=== PATIENT | female | born 1975 | race Caucasian/White ===

== ENCOUNTER → 2018-03-07 08:42 | Outpatient (CLI) | payer BC, SELFPAY ==
[2018-03-07 10:34] LABS: Erythrocyte Sedimentation Rate 5 mm/hr (0-20)
[2018-03-07 10:46] LABS: Absolute Lymphocyte Count 1.55 X10^3/ul (0.83-4.51); Absolute Neutrophil Count 2.7 X10^3/uL (2.0-7.7); Basophil# 0.03 X10^3/uL; Basophil% 0.6 % (0-1); Differential Indicated SCAN CRITERIA MET; Eosinophil# 0.22 X10^3/uL; Eosinophils% 4.4 % (0-5); Hematocrit 31.1 % (37-47); Hemoglobin 8.3 g/dl (12.0-15.0); Immature Platelet Fraction 1.7 % (1.0-7.9); Lymphocyte # 1.55 X10^3/ul (4.0); Lymphocyte % 31.1 % (19-41); Mean Corp Hgb Conc 26.7 g/gl (32-36); Mean Corpuscular Hgb 19.2 pg (27.0-32.0); Mean Corpuscular Volume 71.8 fL (81-99); Mean Platelet Vol. 9.5 fl (6.2-12.0); Monocyte# 0.51 X10^3/uL; Monocyte% 10.2 % (0-10); Neutrophil # 2.67 X10^3/uL (2.7-7.7); Neutrophil % 53.5 % (47-70); POSITIVE COUNT NO; POSITIVE DIFFERENTIAL NO; POSITIVE MORPHOLOGY YES; Platelet Count 355 K/mm3 (150-450); RBC Distribution Width SD 45.3 fl (35.1-43.9); RET-HE 15.9 pg (30-35); Red Blood Count 4.33 M/mm3 (4.2-5.4); Reticulocyte Count 0.87 % (0.5-1.5)
[2018-03-07 10:51] LABS: PTHIN 42.7 pg/mL (18.4-80.1)
[2018-03-07 10:52] LABS: Homocysteine 7.8 umol/L (3.2-10.7)
[2018-03-07 10:58] LABS: Vitamin B12 335 pg/mL (211-911)
[2018-03-07 11:07] LABS: Anisocytosis 2+; Hypochromasia 2+
[2018-03-07 11:08] LABS: Stomatocyte 1+
[2018-03-07 11:25] LABS: CRP < 2.90 mg/L (0.0-3.0); Ferritin 3 ng/mL (8-252); Iron 14 ug/dL (50-170); Iron Binding Capacity,Total 585 ug/dL (250-450); LDH 171 U/L (84-246); Magnesium 2.4 mg/dL (1.6-2.6); PERCENT IRON SATURATION 2.4 % (15.0-55.0); Phosphorus 4.4 mg/dL (2.5-4.9)
[2018-03-09 18:16] LABS: ANTINUCLEAR ANTIBODIES DIRECT Negative (Negative)
[2018-03-10 12:06] LABS: Haptoglobin 123 mg/dL (34-200)
[2018-03-11 09:47] LABS: Vitamin A, Retinol 43.7 ug/dL (20.1-62.0); Zinc, Plasma or Serum 63 ug/dL (56-134)
== END ==
PROVIDERS: Family Provider Internal Medicine; PCP Internal Medicine; Referring Provider Internal Medicine; Visit Provider Internal Medicine
DX: D64.9 Anemia, unspecified (principal); K91.2 Postsurgical malabsorption, not elsewhere classified; R53.83 Other fatigue
CPT/HCPCS: 36415; 82607; 82728; 82746; 83010; 83090; 83540; 83550; 83615; 83735; 83970; 84100; 84590; 84630; 85025; 85045; 85652; 86038; 86140

== ENCOUNTER → 2019-04-23 16:07 | Outpatient (CLI) | payer BC, SELFPAY ==
--- NOTE | 2019-04-23 16:10 | CT_ITS ---
STUDY: CTA CHEST REASON FOR EXAM: Female, 43 years old. POSITIVE D-DIMER, SOB RADIATION DOSAGE (If Supplied By Facility): CTDIvol = ( 8.59 ) mGy, DLP = ( 262.69 ) mGycm TECHNIQUE: The examination was performed with the intravenous administration of IV 100mL [id number]-370. Post-processing of the angiographic images was performed, with multiplanar reformation and 3D reconstruction. Individualized dose optimization techniques were used for this CT. COMPARISON: None. FINDINGS: Normal enhancement of the main pulmonary artery and right and left pulmonary arteries. Normal enhancement of the bilateral peripheral pulmonary arteries. There is no demonstrated pulmonary embolism. Normal thoracic aorta and visualized great vessels. There is no demonstrated aortic dissection. Normal heart and pericardium. Normal mediastinum. Normal hilar regions. Incidentally noted are likely upper tracheal diverticula Normal visualized trachea and bronchi. The lungs are well expanded. Normal pulmonary parenchyma. Normal pleura. There is 1.3 cm x 7 mm fatty partially calcified lesion within the right lobe of the liver. There is prior gastric bypass surgery. There is 7 mm right renal calculus. Normal chest wall structures. Normal osseous structures. Normal visualized upper abdomen. CT/CTA Chest W/WO Contrast IMPRESSION: Normal CTA chest examination, without a demonstrated pulmonary embolism or arterial dissection. 1.3 cm x 7 mm right hepatic lobe lipoma Prior gastric bypass surgery 7 mm right renal calculus Likely upper tracheal diverticula Electronically Signed: Joe Warren, at 17:16 EST Tel , Service support ,
== END ==
PROVIDERS: PCP Internal Medicine; Referring Provider Internal Medicine; Visit Provider Internal Medicine
DX: R79.89 Other specified abnormal findings of blood chemistry (principal)
CPT/HCPCS: 71275; Q9967

== ENCOUNTER → 2019-04-23 | Outpatient (CLI) | payer BC, SELFPAY | END | disposition home or self-care (01) | LOC: LABSPEC 12:04 → RAD 14:29 | PROVIDERS: PCP Internal Medicine; Referring Provider Internal Medicine; Visit Provider Internal Medicine | DX: R06.02 Shortness of breath (principal) | CPT/HCPCS: 85379 ==

== ENCOUNTER → 2019-04-24 12:49 | Outpatient (CLI) | payer BC, SELFPAY ==
[2019-04-24 13:10] VITALS: BP 123/86; PULSE 87; RESP 16; TEMP 36.9; O2SAT 98; BMI 30.3
== END ==
PROVIDERS: PCP Internal Medicine; Referring Provider Internal Medicine; Visit Provider Internal Medicine
DX: D50.9 Iron deficiency anemia, unspecified (principal)
CPT/HCPCS: 96365; J1756; J7050; A4216

== ENCOUNTER → 2019-04-30 09:55 | Outpatient (CLI) | payer BC, SELFPAY ==
[2019-04-24 13:10] VITALS: BMI 30.3
[2019-04-30 10:03] VITALS: BP 123/68; PULSE 68; RESP 18; TEMP 36.4; O2SAT 97; BMI 29.4
[2019-04-30 10:59] VITALS: BP 117/72; PULSE 66; RESP 16
== END ==
PROVIDERS: PCP Internal Medicine; Referring Provider Internal Medicine; Visit Provider Internal Medicine
DX: D50.9 Iron deficiency anemia, unspecified (principal)
CPT/HCPCS: 96365; J1756; J7050; A4216

== ENCOUNTER → 2019-05-02 12:56 | Outpatient (CLI) | payer BC, SELFPAY ==
[2019-04-24 13:10] VITALS: BMI 30.3
[2019-04-30 10:03] VITALS: BMI 29.4
[2019-05-02 13:00] VITALS: BP 126/74; PULSE 73; RESP 16; TEMP 36.6; O2SAT 100; BMI 29.4
== END ==
PROVIDERS: PCP Internal Medicine; Referring Provider Internal Medicine; Visit Provider Internal Medicine
DX: D50.9 Iron deficiency anemia, unspecified (principal)
CPT/HCPCS: 96365; J1756; J7050; A4216

== ENCOUNTER → 2019-05-05 12:51 | Outpatient (CLI) | payer BC, SELFPAY ==
[2019-04-24 13:10] VITALS: BMI 30.3
[2019-05-02 13:00] VITALS: BMI 29.4
[2019-05-05 13:15] VITALS: BP 120/71; PULSE 79; RESP 18; TEMP 36.8; O2SAT 100; BMI 29.4
== END ==
PROVIDERS: PCP Internal Medicine; Referring Provider Internal Medicine; Visit Provider Internal Medicine
DX: D50.9 Iron deficiency anemia, unspecified (principal)
CPT/HCPCS: 96365; J1756; J7050; A4216

== ENCOUNTER → 2019-05-07 12:55 | Outpatient (CLI) | payer BC, SELFPAY ==
[2019-04-24 13:10] VITALS: BMI 30.3
[2019-05-05 13:15] VITALS: BMI 29.4
[2019-05-07 13:49] VITALS: BP 105/63; PULSE 69; RESP 18; TEMP 36.4; O2SAT 99; BMI 29.4
== END ==
PROVIDERS: PCP Internal Medicine; Referring Provider Internal Medicine; Visit Provider Internal Medicine
DX: D50.9 Iron deficiency anemia, unspecified (principal)
CPT/HCPCS: 96365; J1756; J7050; A4216

== ENCOUNTER → 2019-05-12 12:58 | Outpatient (CLI) | payer BC, SELFPAY ==
[2019-04-24 13:10] VITALS: BMI 30.3
[2019-05-07 13:49] VITALS: BMI 29.4
[2019-05-12 13:21] VITALS: BP 120/79; PULSE 68; RESP 16; TEMP 36.4; O2SAT 100; BMI 29.4
== END ==
PROVIDERS: PCP Internal Medicine; Referring Provider Internal Medicine; Visit Provider Internal Medicine
DX: D50.9 Iron deficiency anemia, unspecified (principal)
CPT/HCPCS: 96365; J1756; J7050; A4216

== ENCOUNTER → 2019-05-14 12:58 | Outpatient (CLI) | payer BC, SELFPAY ==
[2019-04-24 13:10] VITALS: BMI 30.3
[2019-05-12 13:21] VITALS: BMI 29.4
[2019-05-14 13:04] VITALS: BP 121/71; PULSE 75; RESP 16; TEMP 36.4; O2SAT 100; BMI 29.4
[2019-05-14] MEDS: 0.9% NaCl Peripheral Flush Adult/Peds IV (13:18)
[2019-05-14] MEDS: 0.9% NaCl IVPB Med Flush (250 mL) 15 ML IV (13:18)
== END ==
PROVIDERS: PCP Internal Medicine; Referring Provider Internal Medicine; Visit Provider Internal Medicine
DX: D50.9 Iron deficiency anemia, unspecified (principal)
CPT/HCPCS: 96365; J1756; J7050; A4216

== ENCOUNTER → 2019-05-19 12:59 | Outpatient (CLI) | payer BC, SELFPAY ==
[2019-04-24 13:10] VITALS: BMI 30.3
[2019-05-14 13:04] VITALS: BMI 29.4
[2019-05-19] MEDS: 0.9% NaCl IVPB Med Flush (250 mL) 15 ML IV (13:22)
[2019-05-19] MEDS: 0.9% NaCl Peripheral Flush Adult/Peds IV (13:22)
[2019-05-19 13:28] VITALS: BP 116/75; PULSE 67; RESP 16; TEMP 37.1; O2SAT 100; BMI 29.4
[2019-05-19 14:07] VITALS: BP 122/74; PULSE 78; RESP 16; TEMP 36.8; O2SAT 98
== END ==
PROVIDERS: PCP Internal Medicine; Referring Provider Internal Medicine; Visit Provider Internal Medicine
DX: D50.9 Iron deficiency anemia, unspecified (principal)
CPT/HCPCS: 96365; J1756; J7050; A4216

== ENCOUNTER → 2019-11-19 14:52 | Outpatient (CLI) | payer BC, SELFPAY ==
[2019-05-19 13:28] VITALS: BMI 29.4
--- NOTE | 2019-11-19 15:10 | CT_ITS ---
STUDY: CT SOFT TISSUE NECK WITHOUT CONTRAST REASON FOR EXAM: Female, 43 years old. dyspnea RADIATION DOSAGE (If Supplied By Facility): CTDIvol = ( 17.05 ) mGy, DLP = ( 472.67 ) mGycm TECHNIQUE: The patient was scanned in a multi-detector CT scanner. High resolution transaxial imaging was performed without the administration of intravenous contrast material. Sagittal and coronal images were reconstructed. Individualized dose optimization techniques were used for this CT. COMPARISON: None. FINDINGS: The study is technically limited, being performed without intravenous contrast. Normal bilateral parotid glands. Normal bilateral home help aide spaces. Normal bilateral parapharyngeal spaces. Normal bilateral carotid spaces. Normal bilateral sublingual and submandibular glands and spaces. Normal visualized nasopharynx. Normal retropharyngeal space. Normal perivertebral space. Normal visualized bilateral faucial tonsils. The visualized tongue, tongue base and oropharynx are normal. The visualized cervical lymph nodes (levels I-) are within normal size limits, and maintain normal morphology. There is no demonstrated solid or cystic mass lesion. Normal epiglottis, bilateral vallecula and hypopharynx. The pre-epiglottic and paraglottic adipose spaces are normal. Normal visualized bilateral piriform sinuses, aryepiglottic folds, vocal cords, and arytenoid-cricoid articulations. Normal subglottic trachea. Normal bilateral lobes of the thyroid gland. Normal visualized pulmonary apices. Normal visualized paranasal sinuses. Normal visualized cervical spine. There is endplate spondylosis of the visualized upper thoracic spine. CT/Soft Tissue Neck without Contr IMPRESSION: Endplate spondylosis of the visualized upper thoracic spine. The study is otherwise unremarkable. Electronically Signed: Cesar Hdez MD at 16:19 EDT , Service support ,
== END ==
PROVIDERS: PCP Internal Medicine; Referring Provider Otolaryngology; Visit Provider Otolaryngology
DX: R06.09 Other forms of dyspnea (principal)
CPT/HCPCS: 70490

== ENCOUNTER → 2020-03-19 08:27 | Outpatient (CLI) | payer BC, SELFPAY ==
[2019-05-19 13:28] VITALS: BMI 29.4
--- NOTE | 2020-03-19 08:35 | RAD_ITS ---
STUDY: X-RAY - ESOPHAGUS (BARIUM SWALLOW) WITH FLUOROSCOPY REASON FOR EXAM: Female, 44 years old. DIFFICULTY SWALLOWING, CONSTANT FEELING OF SOMETHING STUCK IN THROAT, HX ESOPHAGEAL DILATATION AND GASTRIC SURGERY TECHNIQUE: 6 view(s) of the esophagus were obtained following swallowing of barium. FLUOROSCOPY TIME (if supplied): (0:33) minutes/seconds COMPARISON: None. FINDINGS: There is no demonstrated esophageal foreign body. There is no demonstrated stricture or mucosal abnormality. Normal gastroesophageal junction, without a demonstrated hiatal hernia. The patient ingested a 12 mm tablet of barium without difficulty. The patient is status post partial gastrectomy and Billroth II anastomosis. Normal visualized aortic arch and descending thoracic aorta. Normal visualized pulmonary parenchyma. Normal visualized osseous structures of the thorax. RAD/Esophagus Single Contrast IMPRESSION: Normal plain film x-ray examination (barium swallow) of the esophagus. Electronically Signed: Segundo Das MD at 9:42 EST , Service support ,
== END ==
PROVIDERS: PCP Internal Medicine
DX: K21.9 Gastro-esophageal reflux disease without esophagitis (principal); D50.9 Iron deficiency anemia, unspecified
CPT/HCPCS: 74220

== ENCOUNTER → 2022-12-25 | Outpatient (CLI) | payer BC, SELFPAY ==
[2022-12-25 16:10] LABS: Absolute Lymphocyte Count 1.44 X10^3/uL (0.83-4.51); Basophil# 0.05 X10^3/uL; Basophil% 0.9 % (0-1); Eosinophil# 0.12 X10^3/uL; Eosinophils% 2.2 % (0-5); Hematocrit 41.9 % (37-47); Hemoglobin 12.7 g/dL (12.0-15.0); Lymphocyte # 1.44 X10^3/ul (0.83-4.51); Lymphocyte % 26.6 % (19-41); Mean Corp Hgb Conc 30.3 g/dL (32-36); Mean Corpuscular Hgb 28.3 pg (27.0-32.0); Mean Corpuscular Volume 93.5 fL (81-99); Mean Platelet Vol. 10.6 fl (6.2-12.0); Monocyte# 0.76 X10^3/uL; NRBC Flagged by Analyzer 0 % (0-5); Neutrophil # 3.03 X10^3/uL (2.7-7.7); Neutrophil % 56.1 % (47-70); Platelet Count 354 K/mm3 (150-450); RBC Distribution Width CV 13.4 % (11.6-14.6); RBC Distribution Width SD 45.9 fl (35.1-43.9); Red Blood Count 4.48 M/mm3 (4.2-5.4); White Blood Count 5.4 K/mm3 (4.4-11.0)
[2022-12-25 17:00] LABS: AST(SGOT) 34 U/L (15-37); Alanine Aminotransfer ALT/SGPT 28 U/L (13-56); Albumin, Serum 3.6 g/dL (3.2-5.0); Alkaline Phosphatase 80 U/L (45-117); Anion Gap 4 (5-15); BUN 12 mg/dL (7-18); BUN/Creat Ratio 11.3 RATIO (10-20); Bilirubin, Direct 0.16 mg/dL (0.00-0.30); Calcium,Total 8.5 mg/dL (8.5-10.1); Chloride 105 mmol/L (98-107); Creatinine, Serum 1.06 mg/dL (0.55-1.02); EST Glomerular Filtration Rate 59 mL/min (>60); Est Glom Filt Rate - Afr Amer 71 mL/min (>60); Globulin 3.8 g/dL (2.2-4.2); Glucose 95 mg/dL (74-106); Potassium 4.2 mmol/L (3.5-5.1); Protein, Total 7.4 g/dL (6.4-8.2); Sodium Level 137 mmol/L (136-145); Thyroid Stim Hormone (TSH) 3.46 uIU/mL (0.358-3.74)
== END | disposition home or self-care (01) ==
LOC: MTLAB 12:55
PROVIDERS: PCP Internal Medicine; Referring Provider Student in an Organized Health Care Education/Training Program; Visit Provider Student in an Organized Health Care Education/Training Program
DX: F10.90 Alcohol use, unspecified, uncomplicated (principal); F43.22 Adjustment disorder with anxiety
CPT/HCPCS: 36415; 80048; 80076; 84443; 85025

== ENCOUNTER 2023-11-12 07:59 | Emergency (ER) | payer BC, SELFPAY ==
[2023-11-12 07:59] VITALS: BP 185/112; PULSE 95; RESP 16; TEMP 35.9; O2SAT 98; BMI 37.5
--- NOTE | 2023-11-12 08:13 | CT_ITS ---
STUDY: CT BRAIN WITHOUT CONTRAST REASON FOR EXAM: Female, 47 years old. Vertigo RADIATION DOSAGE (If Supplied By Facility): CTDIvol = ( 44.99 ) mGy, DLP = ( 796.11 ) mGycm TECHNIQUE: Transaxial CT imaging of the brain was performed without administration of intravenous contrast material. Individualized dose optimization techniques were used for this CT. COMPARISON: No relevant priors. FINDINGS: Normal soft tissue structures. Normal calvarium. Normal size ventricles and extra-axial spaces for the patient''s age. Normal white matter tracts of the cerebral hemispheres. Normal basal ganglia and thalami. Normal brainstem. Normal cerebellum. There is no intracranial hemorrhage. There are no findings of an acute ischemic infarction. Partial opacification of the right ethmoid sinus. CT/Brain/Head without Contrast IMPRESSION: Normal unenhanced CT scan of the brain. Partial opacification of the right ethmoid sinus. Electronically Signed: Segundo Das MD at 9:08 EDT ,
[2023-11-12 08:38] VITALS: BP 162/113; BP 164/125; BP 187/104; PULSE 118; PULSE 75; PULSE 76
[2023-11-12 08:41] LABS: Absolute Lymphocyte Count 2.39 X10^3/uL (0.83-4.51); Absolute Neutrophil Count 2.9 X10^3/uL (2.0-7.7); Basophil# 0.02 X10^3/uL; Basophil% 0.3 % (0-1); Eosinophil# 0.16 X10^3/uL; Eosinophils% 2.5 % (0-5); Hematocrit 42.9 % (37-47); Hemoglobin 13.2 g/dL (12.0-15.0); Lymphocyte # 2.39 X10^3/ul (0.83-4.51); Lymphocyte % 37.7 % (19-41); Mean Corp Hgb Conc 30.8 g/dL (32-36); Mean Corpuscular Hgb 25.5 pg (27.0-32.0); Mean Corpuscular Volume 82.8 fL (81-99); Mean Platelet Vol. 9.7 fl (6.2-12.0); Monocyte# 0.79 X10^3/uL; Monocyte% 12.5 % (0-10); NRBC Flagged by Analyzer 0 % (0-5); Neutrophil # 2.91 X10^3/uL (2.7-7.7); Neutrophil % 45.9 % (47-70); Platelet Count 267 K/mm3 (150-450); RBC Distribution Width CV 16.7 % (11.6-14.6); RBC Distribution Width SD 50.2 fl (35.1-43.9); Red Blood Count 5.18 M/mm3 (4.2-5.4); White Blood Count 6.3 K/mm3 (4.4-11.0)
[2023-11-12 08:53] LABS: Anion Gap 8 (5-15); BUN 18 mg/dL (7-18); Calcium,Total 8.3 mg/dL (8.5-10.1); Chloride 102 mmol/L (98-107); Creatinine, Serum 1.06 mg/dL (0.55-1.02); EST Glomerular Filtration Rate 58 mL/min (>60); Est Glom Filt Rate - Afr Amer 71 mL/min (>60); Estimated Creatinine Clearance 68.16 ml/min; Glucose 108 mg/dL (74-106); Potassium 3.5 mmol/L (3.5-5.1); Sodium Level 136 mmol/L (136-145)
--- NOTE | 2023-11-12 09:17 | EX.ED.DYSGE1 ---
HPI History of Present Illness Chief Complaint: Cold Sx Detail of Chief Complaint: Viral-like symptoms due to COVID and vertigo Informant: patient Onset/Context/Timing Onset: - (Onset of illness 8 days ago. Diagnosed with COVID 6 days ago) Context: Sudden Onset Timing: Continuous and Intermittent Quality: Patient has viral-like symptoms and vertigo. HPI for complete detail Location: Generalized Current Severity: Mild Maximum Severity: Moderate Worsened by: Vertigo worse with change in position Relieved by: Nothing Associated Symptoms Associated Symptoms: Nausea, myalgias, cough Narrative Narrative: Patient is a 47-year-old female. She has history of adjustment disorder with anxious mood and alcohol disorder. She had viral-like symptoms started 8 days ago. 6 days ago she was diagnosed with COVID-19 infection. Patient does endorse headache. She endorses vertigo. There is also a positional component meaning lightheadedness. She states when she closes her eyes she spins the opposite way. She denies ringing or ears or decreased hearing. She does endorse congestion as well as cough. She does endorse myalgias arthralgias. She denies rash. She has had nausea. She has had no vomiting or diarrhea. She denies history of hypertension, diabetes or hypercholesterolemia. Prior similar symptoms: No Recent Illness/Hospitalization: Yes PFSH PFSH Medical History Alcohol use disorder Adjustment disorder with anxious mood delivery delivered Vitamin deficiency Chronic GERD Irritable bowel syndrome History of emotional problems Alcohol abuse Home Medications ?Medication ?Instructions ?Recorded ?Last Taken ?Type multivitamin 1 ea PO 04/24/19 Unknown History omeprazole 40 mg capsule,delayed 40 mg PO DAILY 04/24/19 Unknown History release propranolol 10 mg tablet 10 mg PO TID PRN anxiety #90 tabs 08/21/23 Unknown Rx acamprosate 333 mg tablet,delayed 666 mg (2 x 333 mg) PO TID 30 days 10/17/23 Unknown Rx release #180 tabs escitalopram oxalate 10 mg tablet 10 mg PO DAILY 90 days #90 tabs 10/17/23 Unknown Rx benzonatate 200 mg capsule 200 mg PO TID PRN cough #20 caps 11/06/23 Unknown Rx dexamethasone 6 mg tablet 6 mg PO DAILY #5 tabs 11/06/23 Unknown Rx Allergy/AdvReac Type Severity Reaction Status Date / Time acetaminophen (From Vicodin) Allergy Hives Verified 11/12/23 08:02 cefpodoxime (From Vantin) Allergy Hives Verified 11/12/23 08:02 hydrocodone (From Vicodin) Allergy Hives Verified 11/12/23 08:02 Family History Other CVA (cerebral vascular accident) Hypertension Parkinson disease Surgical History H/O gastric bypass Social History Smoking Status: Never smoker alcohol intake: current details: 2-3x weekly substance use type: does not use what type of physical activity do you participate in: none ROS ROS ED Constitutional Constitutional ED: Reports chills, fever(s), subjective and sweats; Denies weight loss Eyes Eyes: Denies blurry vision, change in vision or diplopia ENT ENT ED: Reports other Details: She does endorse nasal congestion. ; Denies ear pain, rhinorrhea or sore throat Cardiovascular Cardiovascular: Denies chest pain, orthopnea, palpitations, paroxysmal nocturnal dyspnea or racing heartbeat Respiratory/Chest Respiratory/Chest: Reports cough, dyspnea and sputum; Denies dyspnea on exertion, orthopnea or paroxysmal nocturnal dyspnea Gastrointestinal Gastrointestinal: Denies abdominal pain, diarrhea or vomiting Genitourinary Genitourinary ED: Reports other Details: She denies decreased urine output. ; Denies dysuria, hematuria or urinary frequency Musculoskeletal Musculoskeletal: Reports arthralgias and myalgias Integumentary Denies rash Neurologic Neurologic: Reports headache(s) and other Details: Detailed HPI narrative ; Denies paresthesias or weakness Psychiatric Psychiatric: Reports anxiety Hematologic/Lymphatic Hematologic/Lymphatic: Reports systems reviewed and no addt'l complaints, except as documented EXAM Physical Exam Const Vital Signs: 11/12/23 07:59 11/12/23 07:59 11/12/23 08:38 Temperature 96.6 F L Temperature Source Temporal Pulse Rate 95 Pulse Rate [Lying] 75 Pulse Rate [Sitting (for 1 minute prior to obtaining)] 76 Pulse Rate [Standing (for 1 minute prior to obtaining)] 118 H Respiratory Rate 16 Respiratory Effort Normal Respiratory Pattern Normal Blood Pressure 185/112 H Blood Pressure [Lying] 187/104 H Blood Pressure [Sitting (for 1 minute prior to obtaining)] 162/113 H Blood Pressure [Standing (for 1 minute prior to obtaining)] 164/125 H Blood Pressure Mean 136 Blood Pressure Mean [Lying] 131 Blood Pressure Mean [Sitting (for 1 minute prior to obtaining)] 129 Blood Pressure Mean [Standing (for 1 minute prior to obtaining)] 138 Pulse Ox 98 Oxygen Delivery Method Room Air Positive well nourished and well developed Constitutional Narrative: Patient's orthostatic vital signs are negative. Blood pressure is elevated. She is not tachycardic. General Appearance ED: well developed and NAD; Negative for cyanotic, diaphoretic or pallor HEENT Reports moist mucous membranes HEENT Narrative: Head is atraumatic normocephalic. Ears normal. Nares patent. Posterior pharynx normal. Uvula midline. No deviation with protrusion. Eyes PERRL and EOMs intact bilaterally General Eye ED: Negative for pale conjunctiva or scleral icterus Neck no lymphadenopathy, supple and no JVD Chest Wall inspection of chest normal and palpation of chest normal Resp normal respiratory effort and clear to auscultation bilaterally Cardio regular rate, regular rhythm, S1 normal heart sound, S2 normal heart sound and no murmurs GI normal to inspection, nondistended, normoactive bowel sounds, non-tender, non-distended and no masses; Negative for hepatosplenomegaly Back/Spine no CVA tenderness Back/Spine Narrative: Inspection is normal. Extremity normal to inspection General Extremety ED: Negative for edema or tenderness General Extremity: Negative for edema Neuro oriented x3, CN's II-XII intact bilaterally and no sensory deficits noted Neuro Narrative: There is no dysmetria. Gait was observed. Gait is normal. Tandem gait is normal. Romberg with eyes open and close is negative. The eye askew test and hints test were both negative. Babinski test is negative as well as no clonus at the ankles. DTR 2+ bicep, tricep, brachialis, patella and ankle. DTRs are symmetric. Sensorium / Orientation: alert Motor Exam: strength 5/5 throughout Psych mental status grossly normal Skin no rashes or lesions noted, no wounds and skin turgor normal General Skin Exam: elasticity normal; Negative for jaundice or pallor MDM MDM MDM Narrative Medical decision making narrative: With patient complaining lightheadedness orthostatic vital signs were obtained and negative. Patient's vertigo is undifferentiated. Because she has vertigo will obtain CT of the head. This vertigo is been present for approximate [address] of the head per my review revealed ethmoids sinus disease otherwise unremarkable. Will await formal read by radiologist. Will obtain CBC to assess white count as well as H&H. BMP to assess for hyponatremia. Also assess renal function since patient has had multiple elevated blood pressure readings to assess for endorgan dysfunction. Lab Data Attestation: I reviewed the patient's lab results. Lab results narrative: CBC is unremarkable. BMP is unremarkable. Creatinine is slight elevated 1.06. Is been elevated in the past. Estimated GFR is 58. This is not different from most recent electrolyte panel. Glucose slightly elevated 108. Labs: Laboratory Results - last 24 hr 11/12/23 08:28 WBC 6.3 RBC 5.18 Hgb 13.2 Hct 42.9 MCV 82.8 MCH 25.5 L MCHC 30.8 L RDW Std Deviation 50.2 H RDW Coeff of Grazyna 16.7 H Plt Count 267 MPV 9.7 Immature Gran % (Auto) 1.100 H Neut % (Auto) 45.9 L Lymph % (Auto) 37.7 Hyde % (Auto) 12.5 H Eos % (Auto) 2.5 Baso % (Auto) 0.3 Absolute Neuts (auto) 2.9 Absolute Lymphs (auto) 2.39 Nucleated RBC % 0 Sodium 136 Potassium 3.5 Chloride 102 Carbon Dioxide 26.0 Anion Gap 8 BUN 18 Creatinine 1.06 H Estim Creat Clear Calc 68.16 Est GFR (MDRD) Af Amer 71 Est GFR (MDRD) Non-Af 58 L BUN/Creatinine Ratio 17.0 Glucose 108 H Calcium 8.3 L Radiography Diagnostic Testing: Clinical Impression(s) from Imaging Studies Brain CT 11/12/23 08:13 IMPRESSION: Normal unenhanced CT scan of the brain. Partial opacification of the right ethmoid sinus. Electronically Signed: Segundo Das MD at 9:08 EDT , Treatment and Re-Evaluation :: With a normal neurologic exam normal CAT scan uncertain what is the cause of patient's dizziness which has a positional component as well as being constant. Suspect this is due to her COVID. Will treat with Antivert. She also will need to follow-up with her doctor regarding her elevated blood pressure readings. Discharge Plan Triage Chief Complaint: Cold Sx ED Provider: Cas Martínez Dx/Rx/DC Orders Clinical Impression: COVID-19, Elevated blood-pressure reading without diagnosis of hypertension, Vertigo, Orthostatic lightheadedness Instructions: Coronavirus Disease 2019 (COVID-19): Caring for Yourself or Others, ED Hypertension, To Be Confirmed, ED Vertigo, Unspecified Prescriptions: No Action acamprosate 333 mg tablet,delayed release (DR/EC) 666 mg PO TID 30 Days Qty: 180 1RF Rx Instructions: administer with mid-day and evening meals escitalopram oxalate 10 mg tablet 10 mg PO DAILY 90 Days Qty: 90 0RF dexamethasone 6 mg tablet 6 mg PO DAILY Qty: 5 0RF benzonatate 200 mg capsule 200 mg PO TID PRN (Reason: cough) Qty: 20 0RF omeprazole 40 MG capsule,delayed release(DR/EC) 40 mg PO DAILY multivitamin 1 EACH tablet 1 ea PO propranolol 10 mg tablet 10 mg PO TID PRN (Reason: anxiety) Qty: 90 0RF Primary Care Provider: Brandi Yañez Referrals: Brandi Yañez DO [Primary Care Provider] - 1 Week Print Language: [place]an Disposition Disposition: Home, Self Care
[2023-11-12 09:59] VITALS: BP 126/78; PULSE 78; RESP 16; O2SAT 98
== END 2023-11-12 10:05 | disposition home or self-care (01) ==
PROVIDERS: Emergency Provider Emergency Medicine; PCP Internal Medicine; Visit Provider Emergency Medicine
DX: U07.1 COVID-19 (principal); R03.0 Elevated blood-pressure reading, without diagnosis of hypertension; R42 Dizziness and giddiness
CPT/HCPCS: 70450; 80048; 85025; 99285

== ENCOUNTER 2023-12-06 04:35 | Emergency (ER) | payer BC, SELFPAY ==
[2023-12-06 04:36] VITALS: BP 190/108; PULSE 114; RESP 18; TEMP 36.8; O2SAT 98; BMI 38.2
--- NOTE | 2023-12-06 04:54 | EKG12_ITS ---
Test Reason : HTN Blood Pressure : / mmHG Vent. Rate : 096 BPM Atrial Rate : 096 BPM P-R Int : 160 ms QRS Dur : 074 ms QT Int : 352 ms P-R-T Axes : 053 024 017 degrees QTc Int : 444 ms Normal sinus rhythm Normal ECG Confirmed by GANGA PINEDA MD ([id number]), newspaper or periodical editor MORRIS KAMARA ([id number]) on 12/07/2023 2:11:43 PM Referred By: ALIZE Confirmed By:GANGA PINEDA MD
--- NOTE | 2023-12-06 04:56 | EDS_ITS ---
HPI History of Present Illness Chief Complaint: Hypertension Informant: patient Narrative Narrative: Patient is a 47-year-old female with past medical history of hypertension GERD and anxiety. She states starting around 6 PM last night she noticed that when she looked around or moved that she had a sensation of dizziness which she describes as a sense of motion. She states she became nauseous with this and also felt a ringing in her ears. She states that if she lies perfectly still and closes her eyes that her dizziness improves. However she could not sleep throughout the night and checked her blood pressure and it was elevated and therefore with her dizziness and elevated blood pressure she was concerned and comes in for evaluation [facility] Medical History Alcohol use disorder Adjustment disorder with anxious mood delivery delivered Vitamin deficiency Chronic GERD Irritable bowel syndrome History of emotional problems Alcohol abuse Home Medications ?Medication ?Instructions ?Recorded ?Last Taken ?Type multivitamin 1 ea PO 04/24/19 Unknown History omeprazole 40 mg capsule,delayed 40 mg PO DAILY 04/24/19 Unknown History release propranolol 10 mg tablet 10 mg PO TID PRN anxiety #90 tabs 08/21/23 Unknown Rx acamprosate 333 mg tablet,delayed 666 mg (2 x 333 mg) PO TID 30 days 10/17/23 Unknown Rx release #180 tabs escitalopram oxalate 10 mg tablet 10 mg PO DAILY 90 days #90 tabs 10/17/23 Unknown Rx benzonatate 200 mg capsule 200 mg PO TID PRN cough #20 caps 11/06/23 Unknown Rx dexamethasone 6 mg tablet 6 mg PO DAILY #5 tabs 11/06/23 Unknown Rx diazepam 5 mg tablet (Valium) 5 mg PO TID PRN vertigo 5 days #15 12/06/23 Unknown Rx tabs hydralazine 10 mg tablet 10 mg PO 4X/DAY PRN PRN 12/06/23 Unknown History hypertension ondansetron 4 mg disintegrating 4 mg PO TID PRN nausea and 12/06/23 Unknown Rx tablet vomiting #21 tabs Allergy/AdvReac Type Severity Reaction Status Date / Time acetaminophen (From Vicodin) Allergy Hives Verified 12/06/23 04:39 cefpodoxime (From Vantin) Allergy Hives Verified 12/06/23 04:39 hydrocodone (From Vicodin) Allergy Hives Verified 12/06/23 04:39 Family History Other CVA (cerebral vascular accident) Hypertension Parkinson disease Surgical History H/O gastric bypass Social History Smoking Status: Never smoker alcohol intake: current details: 2-3x weekly substance use type: does not use what type of physical activity do you participate in: none ROS ROS ED Constitutional Constitutional ED: Denies chills or fever(s) Eyes Eyes: Denies blurry vision or change in vision ENT ENT ED: Reports other Details: Positive tinnitus ; Denies ear pain, rhinorrhea or sore throat Cardiovascular Cardiovascular: Denies chest pain or palpitations Respiratory/Chest Respiratory/Chest: Denies cough or dyspnea Gastrointestinal Gastrointestinal: Reports nausea; Denies abdominal pain, diarrhea or vomiting Genitourinary Genitourinary ED: Denies dysuria Musculoskeletal Musculoskeletal: Denies neck pain Integumentary Denies rash Neurologic Neurologic: Reports other Details: Positive dizziness ; Denies headache(s), paresthesias or weakness Psychiatric Psychiatric: Reports anxiety Hematologic/Lymphatic Hematologic/Lymphatic: Denies easy bleeding or easy bruising EXAM Physical Exam Const Vital Signs: 12/06/23 04:36 12/06/23 05:10 12/06/23 06:35 Temperature 98.2 F Temperature Source Oral Pulse Rate 114 H 89 Respiratory Rate 18 16 Respiratory Effort Normal Respiratory Pattern Normal Blood Pressure 190/108 H 161/85 H Blood Pressure Mean 135 110 Pulse Ox 98 96 Oxygen Delivery Method Room Air Room Air 12/06/23 06:50 Temperature 98.4 F Temperature Source Pulse Rate 90 Respiratory Rate 16 Respiratory Effort Respiratory Pattern Blood Pressure 174/100 H Blood Pressure Mean 124 Pulse Ox 98 Oxygen Delivery Method Positive well nourished and well developed General Appearance ED: well developed; Negative for pallor HEENT HEENT Narrative: Bilateral canals and TMs are normal without signs of obstruction or infection Eyes PERRL and EOMs intact bilaterally General Eye ED: Negative for scleral icterus Neck supple Neck Narrative: No nuchal rigidity or meningeal signs Resp normal respiratory effort and clear to auscultation bilaterally Cardio regular rate and regular rhythm Rate: other Other Details: Heart is regular rate and rhythm without murmurs rubs or gallops Radial and carotid pulses are equal and symmetric No carotid bruit GI non-tender, non-distended and no masses GI Narrative: No peritoneal signs or pulsatile mass Auscultation: normoactive bowel sounds Palpation: soft Extremity normal to inspection Extremity Narrative: No asymmetric edema no pitting edema negative Homans' sign bilaterally Neuro oriented x3, CN's II-XII intact bilaterally and no sensory deficits noted Neuro Narrative: Cranial nerves II through XII are grossly intact without focal neurologic deficit GCS of 15 No pronator drift no dysmetria no truncal ataxia Patient does have horizontal nystagmus as well as positive Hallpike Huntley exam NIH stroke scale score of 0 Sensorium / Orientation: alert Motor Exam: strength 5/5 throughout Psych mental status grossly normal Mood & Affect: anxious Skin no rashes or lesions noted General Skin Exam: Negative for jaundice or pallor MDM MDM MDM Narrative Medical decision making narrative: Patient presented to the ER hypertensive but otherwise with stable vitals. She reported dizziness described as a sense of motion that occurred with eye movement or changes in position and is most consistent with peripheral vertigo. It was felt that the vertigo was stimulating stress and anxiety causing an increase in her blood pressure. In order to ensure there was no signs of acute coronary syndrome or acute kidney injury associate with hypertension basic blood work was obtained. Labs revealed no signs of CORNELIA or significant electrolyte abnormality. EKG was normal sinus rhythm without ischemic or dysrhythmia changes. We discussed obtaining a CT of her head based on her symptoms but she had one roughly 3 weeks ago and chart review reveals that there was no acute findings on that image. She was given Valium as her symptoms were most consistent with peripheral vertigo and following administration of this she had improvement of her dizzy symptoms and her blood pressure also improved which further indicates the hypertension was driven by stress and anxiety. On repeat evaluation the patient is neurologic exam remains normal her nystagmus has resolved and she can ambulate with a steady gait. Blood pressure is also imp roved with improvement of her vertigo symptoms. Therefore at this time with no signs of acute kidney injury or acute coronary syndrome and no signs of cerebellar stroke there is no need for further workup and patient is otherwise safe for discharge History & Record Review Discussion w/independent historian: Patient Lab Data Attestation: I reviewed the patient's lab results. Labs: Laboratory Results - last 24 hr 12/06/23 05:04 WBC 8.5 RBC 4.89 Hgb 12.6 Hct 40.4 MCV 82.6 MCH 25.8 L MCHC 31.2 L RDW Std Deviation 53.5 H RDW Coeff of Grazyna 18.1 H Plt Count 298 MPV 9.2 Immature Gran % (Auto) 0.400 Neut % (Auto) 57.7 Lymph % (Auto) 27.0 [place] % (Auto) 13.9 H Eos % (Auto) 0.5 Baso % (Auto) 0.5 Absolute Neuts (auto) 4.9 Absolute Lymphs (auto) 2.29 Nucleated RBC % 0 Sodium 134 L Potassium 3.6 Chloride 100 Carbon Dioxide 23.0 Anion Gap 12 BUN 10 Creatinine 1.00 Estim Creat Clear Calc 73.03 Est GFR (MDRD) Af Amer 76 Est GFR (MDRD) Non-Af 62 BUN/Creatinine Ratio 10.0 Glucose 96 Calcium 8.8 Discharge Plan Triage Chief Complaint: Hypertension ED Provider: Elliott Jeong Dx/Rx/DC Orders Clinical Impression: Peripheral vertigo, Hypertension, GERD (gastroesophageal reflux disease), Anxiety Instructions: ED Hypertension, Established, ED Vertigo, Unspecified Prescriptions: New diazepam [Valium] 5 mg tablet 5 mg PO TID PRN (Reason: vertigo) 5 Days Qty: 15 0RF ondansetron 4 mg tablet,disintegrating 4 mg PO TID PRN (Reason: nausea and vomiting) Qty: 21 0RF No Action acamprosate 333 mg tablet,delayed release (DR/EC) 666 mg PO TID 30 Days Qty: 180 1RF Rx Instructions: administer with mid-day and evening meals escitalopram oxalate 10 mg tablet 10 mg PO DAILY 90 Days Qty: 90 0RF dexamethasone 6 mg tablet 6 mg PO DAILY Qty: 5 0RF benzonatate 200 mg capsule 200 mg PO TID PRN (Reason: cough) Qty: 20 0RF omeprazole 40 MG capsule,delayed release(DR/EC) 40 mg PO DAILY multivitamin 1 EACH tablet 1 ea PO hydralazine 10 mg tablet 10 mg PO 4X/DAY PRN PRN (Reason: hypertension) propranolol 10 mg tablet 10 mg PO TID PRN (Reason: anxiety) Qty: 90 0RF Stand Alone Forms: ED Work / School Excuse Primary Care Provider: Brandi Yañez Referrals: Otilio,Brandi, DO [Primary Care Provider] - Activity Restrictions/Additional Instructions: Please take the prescribed medication as directed to help control your symptoms and you may try the Chema maneuver at home to help with your vertigo symptoms. Please continue all of your home medication as directed by your doctor and return to the ER should you have any further concerns Print Language: Togolese Disposition Disposition: Home, Self Care
[2023-12-06] MEDS: diazePAM 5 MG Tablet PO ×2 (05:06→06:22)
[2023-12-06] MEDS: Ondansetron ODT 4 MG Tablet PO (05:06)
[2023-12-06 05:11] LABS: Absolute Lymphocyte Count 2.29 X10^3/uL (0.83-4.51); Absolute Neutrophil Count 4.9 X10^3/uL (2.0-7.7); Basophil# 0.04 X10^3/uL; Basophil% 0.5 % (0-1); Eosinophil# 0.04 X10^3/uL; Eosinophils% 0.5 % (0-5); Hematocrit 40.4 % (37-47); Hemoglobin 12.6 g/dL (12.0-15.0); Lymphocyte # 2.29 X10^3/ul (0.83-4.51); Mean Corp Hgb Conc 31.2 g/dL (32-36); Mean Corpuscular Hgb 25.8 pg (27.0-32.0); Mean Corpuscular Volume 82.6 fL (81-99); Mean Platelet Vol. 9.2 fl (6.2-12.0); Monocyte# 1.18 X10^3/uL; Monocyte% 13.9 % (0-10); NRBC Flagged by Analyzer 0 % (0-5); Neutrophil # 4.91 X10^3/uL (2.7-7.7); Neutrophil % 57.7 % (47-70); Platelet Count 298 K/mm3 (150-450); RBC Distribution Width CV 18.1 % (11.6-14.6); RBC Distribution Width SD 53.5 fl (35.1-43.9); Red Blood Count 4.89 M/mm3 (4.2-5.4); White Blood Count 8.5 K/mm3 (4.4-11.0)
[2023-12-06 05:45] LABS: Anion Gap 12 (5-15); BUN 10 mg/dL (7-18); Calcium,Total 8.8 mg/dL (8.5-10.1); Chloride 100 mmol/L (98-107); EST Glomerular Filtration Rate 62 mL/min (>60); Est Glom Filt Rate - Afr Amer 76 mL/min (>60); Estimated Creatinine Clearance 73.03 ml/min; Glucose 96 mg/dL (74-106); Potassium 3.6 mmol/L (3.5-5.1); Sodium Level 134 mmol/L (136-145)
[2023-12-06 06:35] VITALS: BP 161/85; PULSE 89; RESP 16; O2SAT 96
[2023-12-06 06:50] VITALS: BP 174/100; PULSE 90; RESP 16; TEMP 36.9; O2SAT 98
== END 2023-12-06 07:00 | disposition home or self-care (01) ==
PROVIDERS: Emergency Provider Emergency Medicine; PCP Internal Medicine; Visit Provider Emergency Medicine
DX: H81.399 Other peripheral vertigo, unspecified ear (principal); I10 Essential (primary) hypertension; K21.9 Gastro-esophageal reflux disease without esophagitis; F41.9 Anxiety disorder, unspecified
CPT/HCPCS: 80048; 85025; 93005; 99283; A4216

== ENCOUNTER 2024-03-11 08:28 | Emergency (ER) | payer BC, SELFPAY ==
[2024-03-11 08:29] VITALS: BP 131/105; PULSE 93; RESP 16; TEMP 36.6; O2SAT 98; BMI 38.7
--- NOTE | 2024-03-11 08:58 | EX.ED.GENINJ ---
HPI History of Present Illness Chief Complaint: Nausea/Vomiting Narrative Narrative: Chief complaint and HPI: Vertigo. 48-year-old female with past medical history of HTN, GERD, anxiety presents for evaluation of vertigo. Patient states that she has history of intermittent vertigo since COVID-19 infection. She does not take any daily medication for it. Patient states she woke up and shortly later developed vertigo. She describes it as the room spinning and a sense of motion. She states when she looks around or moves she gets worsening symptoms. Associated symptom is nausea but no vomiting. She states that if she lies still and closes her eyes the dizziness improves. She denies any fever, chills, shortness of breath, chest pain, cough, recent URI, abdominal pain, vomiting, diarrhea weakness, numbness/tingling, neurological deficit, tinnitus. On chart review, patient was seen in our emergency department last November and symptoms improved with Valium at that time. Review of systems: See HPI Medications: As listed on the chart Allergies: As listed on the chart PFSH: Per chart Vital signs: As listed on the chart. Reviewed. Physical exam: Gen: A&O x3, NAD Head: Normocephalic, atraumatic Eyes: No sclera icterus, conjunctiva clear, PERRL, EOMI, very subtle leftward beating nystagmus ENT: Moist mucous membranes, No facial asymmetry Neck: Trachea midline, No JVD CV: RRR, no murmurs, no peripheral edema Resp: Lungs CTA BL, no w/r/c GI: Abd soft, non-distended, non-tender, no r/r/g Musc: Full ROM, no deformity, strength +5/5 in all extremities, no ataxia Skin: Warm, dry, intact Neuro: Alert, oriented, grossly intact, sensation intact, no focal deficits Psych: Cooperative, appropriate mood and affect PFSH PFSH Medical History Alcohol use disorder Adjustment disorder with anxious mood delivery delivered Vitamin deficiency Chronic GERD Irritable bowel syndrome History of emotional problems Alcohol abuse Home Medications ?Medication ?Instructions ?Recorded ?Last Taken ?Type multivitamin 1 ea PO 04/24/19 Unknown History omeprazole 40 mg capsule,delayed 40 mg PO DAILY 04/24/19 Unknown History release propranolol 10 mg tablet 10 mg PO TID PRN anxiety #90 tabs 08/21/23 Unknown Rx acamprosate 333 mg tablet,delayed 666 mg (2 x 333 mg) PO TID 30 days 10/17/23 Unknown Rx release #180 tabs benzonatate 200 mg capsule 200 mg PO TID PRN cough #20 caps 11/06/23 Unknown Rx dexamethasone 6 mg tablet 6 mg PO DAILY #5 tabs 11/06/23 Unknown Rx hydralazine 10 mg tablet 10 mg PO 4X/DAY PRN PRN 12/06/23 Unknown History hypertension ondansetron 4 mg disintegrating 4 mg PO TID PRN nausea and 12/06/23 Unknown Rx tablet vomiting #21 tabs escitalopram oxalate 10 mg tablet 10 mg PO DAILY 90 days #90 tabs 01/07/24 Unknown Rx meclizine 25 mg tablet 25 mg PO BID PRN dizziness 3 days 03/11/24 Unknown Rx #6 tabs Allergy/AdvReac Type Severity Reaction Status Date / Time acetaminophen (From Vicodin) Allergy Hives Verified 03/11/24 08:29 cefpodoxime (From Vantin) Allergy Hives Verified 03/11/24 08:29 hydrocodone (From Vicodin) Allergy Hives Verified 03/11/24 08:29 Family History Other CVA (cerebral vascular accident) Hypertension Parkinson disease Surgical History H/O gastric bypass Social History Smoking Status: Never smoker alcohol intake: current details: 2-3x weekly substance use type: does not use what type of physical activity do you participate in: none EXAM Physical Exam Const Vital Signs: 03/11/24 08:29 03/11/24 10:29 03/11/24 10:42 Temperature 98 F Temperature Source Temporal Pulse Rate 93 77 85 Respiratory Rate 16 16 16 Blood Pressure 131/105 H 196/97 H 196/97 H Blood Pressure Mean 113 130 130 Pulse Ox 98 98 99 Oxygen Delivery Method Room Air 03/11/24 11:25 Temperature 98 F Temperature Source Pulse Rate 93 Respiratory Rate 16 Blood Pressure 192/99 H Blood Pressure Mean 130 Pulse Ox 99 Oxygen Delivery Method MDM MDM MDM Narrative Medical decision making narrative: 48-year-old female with past medical history of HTN, GERD, anxiety presents for evaluation of vertigo. Describes it as the room spinning and emotion feeling. Improves when eyes are closed and sitting still. Accepted symptoms of previous vertigo. Patient's symptoms are consistent with peripheral vertigo. Do not think any laboratory workup or imaging is needed at this time. Vitals are stable other than some mild hypertension. Will treat with meclizine and reevaluate. On reevaluation after meclizine, patient's nystagmus has resolved. However she states that she does have some mild ringing in the ears. Patient may have undiagnosed M?ni?re's disease. Her vertigo has improved. Patient was able to ambulate in the emergency department without any difficulty. Patient is comfortably discharging home. Patient will be prescribed a 3-day course of meclizine as needed for vertigo. Follow-up with PCP. She confirmed understand the plan. Impression: 1. Peripheral vertigo Discharge Plan Triage Chief Complaint: Nausea/Vomiting ED Provider: Vincenzo Telles Dx/Rx/DC Orders Clinical Impression: Vertigo Instructions: ED Vertigo, Unspecified Prescriptions: New meclizine 25 mg tablet 25 mg PO BID PRN (Reason: dizziness) 3 Days Qty: 6 0RF No Action acamprosate 333 mg tablet,delayed release (DR/EC) 666 mg PO TID 30 Days Qty: 180 1RF Rx Instructions: administer with mid-day and evening meals dexamethasone 6 mg tablet 6 mg PO DAILY Qty: 5 0RF benzonatate 200 mg capsule 200 mg PO TID PRN (Reason: cough) Qty: 20 0RF omeprazole 40 MG capsule,delayed release(DR/EC) 40 mg PO DAILY multivitamin 1 EACH tablet 1 ea PO hydralazine 10 mg tablet 10 mg PO 4X/DAY PRN PRN (Reason: hypertension) ondansetron 4 mg tablet,disintegrating 4 mg PO TID PRN (Reason: nausea and vomiting) Qty: 21 0RF propranolol 10 mg tablet 10 mg PO TID PRN (Reason: anxiety) Qty: 90 0RF escitalopram oxalate 10 mg tablet 10 mg PO DAILY 90 Days Qty: 90 0RF Stand Alone Forms: ED Work / School Excuse Primary Care Provider: Brandi Yañez Referrals: Brandi Yañez DO [Primary Care Provider] - 3-5 Days Activity Restrictions/Additional Instructions: You received meclizine here in the emergency department. Do not take another dose until this evening if needed. Follow-up with primary care physician. Print Language: Tunisian Disposition Disposition: Home, Self Care Discharge Date/Time: 03/11/24 11:30
[2024-03-11] MEDS: Meclizine HCl 25 MG Tablet PO (09:02)
[2024-03-11 10:29] VITALS: BP 196/97; PULSE 77; RESP 16; O2SAT 98
[2024-03-11 10:42] VITALS: BP 196/97; PULSE 85; RESP 16; O2SAT 99
[2024-03-11 11:25] VITALS: BP 192/99; PULSE 93; RESP 16; TEMP 36.6; O2SAT 99
--- NOTE | 2024-03-11 11:26 | ED.RN ---
Pt's blood pressure reading trending high while in ED. Pt states her pressures have been running high, is working with PCP to better control them. Pt also states she has PRN BP meds to take at home when pressures are high, but hasn't taken them in awhile. This RN discussed need to start log of BP readings at home and take to PCP. Pt states she will also start taking blood pressure meds again and contact PCP. Pt voices understanding to return for any further concerns or symptoms.
== END 2024-03-11 11:30 | disposition home or self-care (01) ==
PROVIDERS: Emergency Provider Surgery; PCP Internal Medicine; Visit Provider Surgery
DX: R42 Dizziness and giddiness (principal); R11.2 Nausea with vomiting, unspecified; Z86.16 Personal history of COVID-19
CPT/HCPCS: 99282

== ENCOUNTER 2024-05-04 18:19 | Emergency (ER) | payer BC, SELFPAY ==
[2024-05-04] VITALS (7 sets, daily range): BP systolic 130–231; BP diastolic 76–142; PULSE 100–156; RESP 16–24; TEMP 36.3; O2SAT 94–98; BMI 36.6
--- NOTE | 2024-05-04 18:33 | EX.ED.SAOD ---
HPI <BUCKY Celeste - Last Filed: 05/04/24 20:49> History of Present Illness Chief Complaint: Substance Abuse Narrative Narrative: 48-year-old female was brought in by her family members to detox from alcohol. Patient states her brother made her come here and she does not want to be here. She does not want to detox. She states she has been drinking heavily for a few months. She said it has ruined her marriage and that her kid moved away. She does not want to tell me further history. PFSH <BUCKY Celeste - Last Filed: 05/04/24 20:49> PFSH Medical History Alcohol use disorder Adjustment disorder with anxious mood delivery delivered Vitamin deficiency Chronic GERD Irritable bowel syndrome History of emotional problems Alcohol abuse Home Medications ?Medication ?Instructions ?Recorded ?Last Taken ?Type omeprazole 40 mg capsule,delayed 40 mg PO DAILY 04/24/19 05/04/24 History release escitalopram oxalate 10 mg tablet 10 mg PO DAILY 05/04/24 05/04/24 History Allergy/AdvReac Type Severity Reaction Status Date / Time acetaminophen (From Vicodin) Allergy Hives Verified 05/04/24 18:22 cefpodoxime (From Vantin) Allergy Hives Verified 05/04/24 18:22 hydrocodone (From Vicodin) Allergy Hives Verified 05/04/24 18:22 Family History Other CVA (cerebral vascular accident) Hypertension Parkinson disease Surgical History H/O gastric bypass Social History Smoking Status: Never smoker alcohol intake: current details: 2-3x weekly substance use type: does not use what type of physical activity do you participate in: none ROS <BUCKY Celeste - Last Filed: 05/04/24 20:49> ROS ED ROS Narrative Unable to obtain due to uncooperative patient EXAM <BUCKY Celeste - Last Filed: 05/04/24 20:49> Physical Exam Narrative Exam Narrative: CONST: Patient sitting in no acute distress. EYES: Normal inspection. NECK: Normal inspection. RESP: No respiratory distress, CTAB. CVS: Tachycardic with regular rhythm, no murmur, no gallop. SKIN: Color normal, no rash, warm, dry, intact. EXTREMITIES: Normal appearance, no pedal edema. NEURO: Alert and answering questions appropriately. PSYCH: Labile mood. Const Vital Signs: 05/04/24 18:20 05/04/24 19:44 05/04/24 20:00 Temperature 97.4 F L Temperature Source Temporal Pulse Rate 156 H 130 H 106 H Respiratory Rate 24 H 18 20 H Blood Pressure 231/142 H 207/109 H 208/112 H Blood Pressure Mean 171 141 144 Pulse Ox 98 97 95 Oxygen Delivery Method Room Air Room Air Room Air 05/04/24 21:46 05/04/24 21:57 05/04/24 23:01 Temperature Temperature Source Pulse Rate 105 H 105 H Respiratory Rate 18 18 Blood Pressure 221/117 H Blood Pressure Mean 151 Pulse Ox 94 98 Oxygen Delivery Method Room Air 05/04/24 23:11 Temperature Temperature Source Pulse Rate 100 Respiratory Rate 16 Blood Pressure 130/76 H Blood Pressure Mean 94 Pulse Ox 94 Oxygen Delivery Method Room Air <Dr. Chapincito Sanchez MD - Last Filed: 05/04/24 23:19> Physical Exam Const Vital Signs: 05/04/24 18:20 05/04/24 19:44 05/04/24 20:00 Temperature 97.4 F L Temperature Source Temporal Pulse Rate 156 H 130 H 106 H Respiratory Rate 24 H 18 20 H Blood Pressure 231/142 H 207/109 H 208/112 H Blood Pressure Mean 171 141 144 Pulse Ox 98 97 95 Oxygen Delivery Method Room Air Room Air Room Air 05/04/24 21:46 05/04/24 21:57 05/04/24 23:01 Temperature Temperature Source Pulse Rate 105 H 105 H Respiratory Rate 18 18 Blood Pressure 221/117 H Blood Pressure Mean 151 Pulse Ox 94 98 Oxygen Delivery Method Room Air 05/04/24 23:11 Temperature Temperature Source Pulse Rate 100 Respiratory Rate 16 Blood Pressure 130/76 H Blood Pressure Mean 94 Pulse Ox 94 Oxygen Delivery Method Room Air MDM <BUCKY Celeste - Last Filed: 05/04/24 20:49> MDM MDM Narrative Medical decision making narrative: 48-year-old female was initially brought in by her brother and dad to detox for alcohol. Patient states she does not want be here. She has a volatile emotional state. Unprompted she reported suicidal ideation and requested a pink shot that she states is a euthanasia shot they use for pets. Patient was pink slipped due to suicidal ideation without a plan. She was initially very hypertensive and tachycardic at 231/142 and 156 bpm but I am not sure this was an accurate reading. Recheck an hour later is 207/109 and 130 bpm. CBC is unremarkable. BMP shows CO2 of 17.8, anion gap 21, normal sodium and potassium, BUN 9, creatinine 1.10. Glucose is 114. Liver enzymes not markedly elevated. Urine drug screen negative. Alcohol level is 301. She was ordered IV fluids and ibuprofen for a headache. Patient is pink slipped and plan is to observe in the department until clinically sober and she will be evaluated by the crisis counselor or social insurance adviser. Lab Data Attestation: I reviewed the patient's lab results. Labs: Laboratory Results - last 24 hr 05/04/24 05/04/24 05/04/24 18:55 19:05 22:42 WBC 8.0 RBC 4.99 Hgb 12.7 Hct 39.9 MCV 80.0 L MCH 25.5 L MCHC 31.8 L RDW Std Deviation 47.9 H RDW Coeff of Grazyna 17.1 H Plt Count 340 MPV 9.4 Immature Gran % (Auto) 0.200 Neut % (Auto) 50.2 Lymph % (Auto) 38.2 [place] % (Auto) 9.5 Eos % (Auto) 1.0 Baso % (Auto) 0.9 Absolute Neuts (auto) 4.0 Absolute Lymphs (auto) 3.07 Nucleated RBC % 0 Sodium 134 140 Potassium 4.1 4.2 Chloride 95 L 102 Carbon Dioxide 17.8 L 20.2 L Anion Gap 21 H 18 H BUN 9 8 Creatinine 1.10 1.02 Estim Creat Clear Calc 64.09 69.11 Est GFR (MDRD) Non-Af 61 67 BUN/Creatinine Ratio 8.1 L 8.2 L Glucose 114 H 104 H Calcium 9.0 8.5 Total Bilirubin 0.32 AST 54 H ALT 25 Alkaline Phosphatase 87 Total Protein 7.8 Albumin 4.5 Globulin 3.3 Albumin/Globulin Ratio 1.4 Serum , Qual NEGATIVE Urine Opiates Screen NEGATIVE U Buprenorphine Qual NEGATIVE Ur Oxycodone Screen NEGATIVE Urine Methadone Screen NEGATIVE Urine Fentanyl Screen NEGATIVE Ur Barbiturates Screen NEGATIVE Ur Phencyclidine Scrn NEGATIVE Ur Amphetamines Screen NEGATIVE U Benzodiazepines Scrn NEGATIVE Urine Cocaine Screen NEGATIVE U Cannabinoids Screen NEGATIVE Ethyl Alcohol 301.0 H* <Dr. Chapincito Sanchez MD - Last Filed: 05/04/24 23:19> [facility] Lab Data Labs: Laboratory Results - last 24 hr 05/04/24 05/04/24 05/04/24 18:55 19:05 22:42 WBC 8.0 RBC 4.99 Hgb 12.7 Hct 39.9 MCV 80.0 L MCH 25.5 L MCHC 31.8 L RDW Std Deviation 47.9 H RDW Coeff of Grazyna 17.1 H Plt Count 340 MPV 9.4 Immature Gran % (Auto) 0.200 Neut % (Auto) 50.2 Lymph % (Auto) 38.2 [place] % (Auto) 9.5 Eos % (Auto) 1.0 Baso % (Auto) 0.9 Absolute Neuts (auto) 4.0 Absolute Lymphs (auto) 3.07 Nucleated RBC % 0 Sodium 134 140 Potassium 4.1 4.2 Chloride 95 L 102 Carbon Dioxide 17.8 L 20.2 L Anion Gap 21 H 18 H BUN 9 8 Creatinine 1.10 1.02 Estim Creat Clear Calc 64.09 69.11 Est GFR (MDRD) Non-Af 61 67 BUN/Creatinine Ratio 8.1 L 8.2 L Glucose 114 H 104 H Calcium 9.0 8.5 Total Bilirubin 0.32 AST 54 H ALT 25 Alkaline Phosphatase 87 Total Protein 7.8 Albumin 4.5 Globulin 3.3 Albumin/Globulin Ratio 1.4 Serum , Qual NEGATIVE Urine Opiates Screen NEGATIVE U Buprenorphine Qual NEGATIVE Ur Oxycodone Screen NEGATIVE Urine Methadone Screen NEGATIVE Urine Fentanyl Screen NEGATIVE Ur Barbiturates Screen NEGATIVE Ur Phencyclidine Scrn NEGATIVE Ur Amphetamines Screen NEGATIVE U Benzodiazepines Scrn NEGATIVE Urine Cocaine Screen NEGATIVE U Cannabinoids Screen NEGATIVE Ethyl Alcohol 301.0 H* Treatment and Re-Evaluation Narrative: I have personally performed a face to face assessment of the patient and have reviewed the ALEXSANDRA Note. I performed a substantive portion of the visit including all aspects of the following. My alegria findings include: History is apparently brought in by family for detox but the patient states she does not want detox and she is very upset. She admits that she has been drinking heavily and because of this is ruin her marriage and other family relationships. Admits to suicidal thoughts but denies a plan, but however in the same sentence is requesting an injection for euthanasia. Denies recent illness or injury. Discussed with father, the only other family members still here, he states they were concerned about her because she lives alone and will not talk to any of her family members or answer their calls to her. Exam is emotionally labile, intoxicated. Tachycardic while yelling and crying. Rest of the exam is normal, during the exam she gets up and runs out of the room barefoot in her gown saying that she is going to find her brother and kill him. Medical Decison Making security was called and we escorted the patient back to her room, afterwards she was cooperative but I have pink slipped her, and obtained labs. Her blood pressure is still high, we will monitor that and treat it if necessary. Alcohol is very high so as I discussed with the patient she will need to be observed here overnight until her alcohol level normalizes and she can be medically cleared to talk with crisis. Her anion gap is a little elevated and her bicarb low, she is currently intoxicated do not suspect AKA and she is not a diabetic. Lab has new chemistry analyzer. We are going to repeat her chemistry panel after a liter of IV fluids. That was done and reviewed. Bicarb is better and closer to normal, anion gap is a lower. Her blood pressure stayed high so we gave her a clonidine and rechecked it an hour or 2 later and she is down to 130/76 and the rest of her vital signs are normal. She is medically cleared for psychiatric valuation after alcohol calms down. Checked out to night physician for observation until morning. Other additions or changes: [None] Discharge Plan Triage Chief Complaint: Substance Abuse ED Midlevel Provider: Niru Galicia ED Provider: Chapincito Sanchez Dx/Rx/DC Orders Clinical Impression: Suicidal ideation, Alcohol abuse, Alcohol intoxication, Emotional lability Prescriptions: No Action omeprazole 40 MG capsule,delayed release(DR/EC) 40 mg PO DAILY escitalopram oxalate 10 mg tablet 10 mg PO DAILY Primary Care Provider: Brandi Yañez Referrals: Brandi Yañez DO [Primary Care Provider] - Print Language: Turkmen
--- NOTE | 2024-05-04 18:50 | ED.RN ---
Niru PA to speak with patient while this RN and Vanita FRIAS were bedside. Patient was visibly upset, tearful, and angry yelling at staff and then apologetic about yelling. Patient states she doesnt know why she is here and is not consenting at this time to the [facility] program. Patient stated that she wants (the pink shot). When the patient was asked what the pink shot is, she stated it is the euthanaisa shot given to cats to put them down. Patient requested multiple times to receive the pink shot. After Niru exited the room patient became extremely emotional sobbing asking this RN if she could have a hug. Patient removed sweatshirt and tshirt, gown was placed on and patient was hooked up to the monitor. Dr. Sanchez entered the room and was speaking with the patient regarding current visit to the ER. Patient requested that the physician hit her in the face and give her the pink shot. Patient was told the physician would not be doing either of those things. Patient tearful stating she did not want to be here. Patient then inquired about the location of her father and brother. Patient was told they were in the waiting room. Patient asked again where her brother was and was told he was in the waiting room. Patient then hopped up out of bed and entered the hallway stating (Im going to fuck him up, Im going to beat the shit out of him). Staff assist but was hit and security and [employer] were called. Patient was escorted back to her room. Belongings and objects were removed from the room, patient was changed into a gown and explained that she would need to cooperate and was not going to be allowed to leave the room at this time due to making threats to others. Sitter placed in room and security located outside of room. Patient tearful and emotional.
--- NOTE | 2024-05-04 19:28 | NURSING ---
At approximately 19:15 on 05/04/2024 this nurse tech accompanied the patient to the restroom to obtain a urine sample. The patient then grabbed this nurse tech's arm and asked about the tattoos his arm. Upon returning to the room the patient then grabbed this nurse tech's ID badge. This nurse tech then retrieved the ID badge and educated the patient that it is inappropriate to place their hands on healthcare workers and informed the patient to keep their hands to them self. The patient then apologized and claimed that she was going to leave.
[2024-05-04 19:48] LABS: Absolute Lymphocyte Count 3.07 X10^3/uL (0.83-4.51); Basophil# 0.07 X10^3/uL; Basophil% 0.9 % (0-1); Eosinophil# 0.08 X10^3/uL; Hematocrit 39.9 % (37-47); Hemoglobin 12.7 g/dL (12.0-15.0); Lymphocyte # 3.07 X10^3/ul (0.83-4.51); Lymphocyte % 38.2 % (19-41); Mean Corp Hgb Conc 31.8 g/dL (32-36); Mean Corpuscular Hgb 25.5 pg (27.0-32.0); Mean Platelet Vol. 9.4 fl (6.2-12.0); Monocyte# 0.76 X10^3/uL; Monocyte% 9.5 % (0-10); NRBC Flagged by Analyzer 0 % (0-5); Neutrophil # 4.03 X10^3/uL (2.7-7.7); Neutrophil % 50.2 % (47-70); Platelet Count 340 K/mm3 (150-450); RBC Distribution Width CV 17.1 % (11.6-14.6); RBC Distribution Width SD 47.9 fl (35.1-43.9); Red Blood Count 4.99 M/mm3 (4.2-5.4)
[2024-05-04 20:06] LABS: Internal QC Validated? YES +Cl - CLEAR BKGD; Pregnancy, Serum, hCG Quali. NEGATIVE Negative
[2024-05-04 20:13] LABS: Amphetamine Urine NEGATIVE (<1000 ng/mL); Barbiturate Urine NEGATIVE (< 200 ng/mL); Benzodiazepine Urine NEGATIVE (< 200 ng/mL); Buprenorphine Urine NEGATIVE (< 200 ng/mL); Cocaine Urine NEGATIVE (< 300 ng/mL); Fentanyl, Urine NEGATIVE; Methadone Urine NEGATIVE (< 300 ng/mL); Opiates Urine NEGATIVE (< 300 ng/mL); Oxycodone, Urine NEGATIVE (< 100 ng/mL); PCP Urine NEGATIVE (< 25 ng/mL); THC Urine NEGATIVE (< 50 ng/mL)
[2024-05-04 20:15] LABS: ALB/GLOB Ratio 1.4 RATIO (0.9-2.4); AST(SGOT) 54 U/L (<=31); Alanine Aminotransfer ALT/SGPT 25 U/L (<=34); Albumin, Serum 4.5 g/dL (3.5-5.0); Alkaline Phosphatase 87 U/L (35-104); Anion Gap 21 (5-15); BUN 9 mg/dL (4-19); BUN/Creat Ratio 8.1 RATIO (10-20); Carbon Dioxide 17.8 mmol/L (21.0-32.0); Chloride 95 mmol/L (98-108); EST Glomerular Filtration Rate 61 (>60); Estimated Creatinine Clearance 64.09 ml/min (50-250); Globulin 3.3 g/dL (2.2-4.2); Glucose 114 mg/dL (70-99); Potassium 4.1 mmol/L (3.3-5.1); Protein, Total 7.8 g/dL (5.9-8.4); Sodium Level 134 mmol/L (133-145); Total Bilirubin 0.32 mg/dL (0.00-1.30)
[2024-05-04] MEDS: Ibuprofen 600 MG Tablet PO (20:28)
--- NOTE | 2024-05-04 20:30 | ED.RN ---
This RN informed pt that IV fluids have been ordered and RN will have to start an IV. Pt became frustrated saying she should not be here and per pt I'm going to kill my brother when I get out of here. Pt making jokes about her life ending and stated wait I take that back. I promise I'm not suicidal, please don't tell anyone.
[2024-05-04] MEDS: 0.9% Normal Saline (1000mL) 1,000 ML 999 ML IV (20:42)
--- NOTE | 2024-05-04 20:49 | ED.RN ---
Patient claimed multiple times that she was going to kill her brother while sitter was in the room
--- NOTE | 2024-05-04 22:15 | ED.RN ---
This RN educated pt on the medication clonidine that she would be receiving for her high blood pressure. Educated pt that sustaining high blood pressures can put pt at risk for medical emergencies such as stroke. Pt stated 'I don't care, I hope I have a stroke and .
[2024-05-04] MEDS: cloNIDine HCl 0.2 MG Tablet PO (22:16)
[2024-05-04 23:14] LABS: Anion Gap 18 (5-15); BUN 8 mg/dL (4-19); BUN/Creat Ratio 8.2 RATIO (10-20); Calcium,Total 8.5 mg/dL (7.6-11.0); Carbon Dioxide 20.2 mmol/L (21.0-32.0); Chloride 102 mmol/L (98-108); Creatinine, Serum 1.02 mg/dL (0.70-1.20); EST Glomerular Filtration Rate 67 (>60); Estimated Creatinine Clearance 69.11 ml/min (50-250); Glucose 104 mg/dL (70-99); Potassium 4.2 mmol/L (3.3-5.1); Sodium Level 140 mmol/L (133-145)
[2024-05-05 03:28] VITALS: BP 146/88; PULSE 102; RESP 96; O2SAT 96
[2024-05-05 05:01] VITALS: BP 174/94; PULSE 91; RESP 16; O2SAT 97
[2024-05-05] MEDS: 0.9% Normal Saline (1000mL) 1,000 ML 999 ML IV (05:24)
[2024-05-05] MEDS: Lorazepam 2 MG/ML WCH Syringe 1 MG IV (05:24)
[2024-05-05 06:15] LABS: Alcohol, Blood (Medical)-Serum 60.5 mg/dL (<=10.0)
[2024-05-05 07:15] VITALS: BP 150/106
[2024-05-05 07:41] LABS: Anion Gap 19 (5-15); BUN 8 mg/dL (4-19); BUN/Creat Ratio 8.5 RATIO (10-20); Calcium,Total 8.2 mg/dL (7.6-11.0); Carbon Dioxide 18.1 mmol/L (21.0-32.0); Chloride 100 mmol/L (98-108); Creatinine, Serum 0.92 mg/dL (0.70-1.20); EST Glomerular Filtration Rate 76 (>60); Estimated Creatinine Clearance 76.62 ml/min (50-250); Glucose 88 mg/dL (70-99); Sodium Level 137 mmol/L (133-145)
[2024-05-05 09:51] VITALS: BP 179/80; PULSE 94; RESP 16; TEMP 36.3; O2SAT 100
== END 2024-05-05 09:53 | disposition home or self-care (01) ==
PROVIDERS: Emergency Medicine; Physician Assistant; Emergency Provider Emergency Medicine; PCP Internal Medicine; Visit Provider Emergency Medicine
DX: R45.851 Suicidal ideations (principal); F10.129 Alcohol abuse with intoxication, unspecified; Z79.899 Other long term (current) drug therapy; Y90.8 Blood alcohol level of 240 mg/100 ml or more
CPT/HCPCS: 36415; 80048; 80053; 80307; 82077; 84703; 85025; 96374; 96376; 99284; A4216; J3486